=== PATIENT | male | born 1965 | race Caucasian/White ===

== ENCOUNTER 2017-07-21 08:06 | Emergency (ER) | payer BC ==
[2017-07-21 08:25] VITALS: BP 152/95
--- NOTE | 2017-07-21 08:39 | UC ---
Skin Complaint HPI - HPI Summary HPI Summary: 51 yo male with left thumb pain and swelling remote hx of pw with wire in that same location no f/c - History of Current Complaint Chief Complaint: UCSkin Time Seen by Provider: 07/21/17 08:17 Stated Complaint: RED AREA ON THUMB Hx Obtained From: Patient Onset/Duration: Gradual Onset, Lasting Days Timing: Constant Onset Severity: Mild Current Severity: Severe Pain Intensity: 9 Pain Scale Used: 0-10 Numeric Location: Discrete Character: Pain, Redness, Raised, Painful Aggravating Factor(s): Touch Alleviating Factor(s): Nothing Associated Signs & Symptoms: Positive: Tenderness Related History: Trauma - remote hx pw with wire - Allergy/Home Medications Allergies/Adverse Reactions: Allergies Allergy/AdvReac Type Severity Reaction Status Date / Time No Known Allergies Allergy Verified 07/21/17 08:24 Review of Systems Constitutional: Negative Skin: Negative Eyes: Negative ENT: Negative Respiratory: Negative Cardiovascular: Negative Gastrointestinal: Negative Genitourinary: Negative Motor: Negative Neurovascular: Negative Musculoskeletal: Negative Neurological: Negative Psychological: Negative Is Patient Immunocompromised?: No All Other Systems Reviewed And Are Negative: Yes PMH/Surg Hx/FS Hx/Imm Hx Previously Healthy: Yes Cardiovascular History: Hypertension - Surgical History Surgical History: Yes Surgery Procedure, Year, and Place: L wrist surgery,knees, feet, APPY REMOVED 1989 - Family History Known Family History: Positive: Cardiac Disease, Hypertension - Social History Alcohol Use: Daily Alcohol Amount: "sober for 14 months" Substance Use Type: None Smoking Status (MU): Light Every Day Tobacco Smoker Amount Used/How Often: 1pk/q3days Physical Exam Triage Information Reviewed: Yes Appearance: Well-Appearing Vital Signs: Initial Vital Signs Temp 98.8 F 07/21/17 08:17 Pulse 99 07/21/17 08:17 Resp 18 07/21/17 08:17 BP 152/95 07/21/17 08:17 Pulse Ox 98 07/21/17 08:17 Vital Signs Reviewed: Yes Eyes: Positive: Conjunctiva Clear ENT: Negative: Nasal congestion, Nasal drainage Neck: Positive: Supple, Nontender Respiratory: Positive: Lungs clear, Normal breath sounds, No respiratory distress, No accessory muscle use Cardiovascular: Positive: RRR Abdominal Exam: Normal Musculoskeletal: Positive: ROM Intact, Edema @ Neurological Exam: Normal Psychological Exam: Normal Course/Dx - Course Course Of Treatment: TO SEE DR. GAEE FROM HERE - Diagnoses Provider Diagnoses: LEFT THUMB ABSCESS/RETAINED FOREIGN BODY. INCISION AND DRAINAGE OF LEFT THUMB ABSCESS Procedures - Procedure Summary Procedure Summary: I&D LEFT THUNB ABSCESS TIME OUT DIGITAL BLOCL WITH 7CC LIDOCAINEAND MARCAINE INCISED COPIUS PUS EXPRESSED C&S OBTAINED UNABLE TO LOCAL FB STERILE DRESSING - Incision and Drainage Site: left thumb Anesthesia: Digital, Lidocaine - and marcaine Instrument(s): Needle Packing: Other - no packing Discharge - Discharge Plan Condition: Stable Disposition: HOME Prescriptions: Cephalexin CAP* [Keflex CAP*] 500 mg PO QID #28 cap Patient Education Materials: Soft Tissue Foreign Body (ED), Abscess (ED) Referrals: Divina Agee MD [Medical Doctor] - (TO OFFICE NOW) Images Hands: 1 - pointing abscess with surrounding erthyema
[2017-07-21] MEDS ORDERED: Lidocaine 2% PF * 5 ML VIAL INJ ONE (08:49)
[2017-07-21] MEDS ORDERED: Bupivacaine 0.25% SDV* 30 ML INJ ONE (08:51)
[2017-07-21] MEDS ORDERED: Bupivacaine 0.25% MDV* 50 ML VIAL INJ ONE (09:01)
--- NOTE | 2017-07-21 09:05 | RAD ---
INDICATION: Evaluate for foreign body COMPARISON: None TECHNIQUE: AP, lateral, and oblique views were obtained. FINDINGS: There is a small linear foreign body medially adjacent to the tuft. The foreign body measures 3 mm in length and is 4 mm deep to the skin surface at its closest point. There are no focal osseous findings. There is soft tissue swelling about the left IMPRESSION: FOREIGN BODY WITH SOFT TISSUE SWELLING
[2017-07-21] MEDS ORDERED: Bupivacaine 0.25% SDV* 30 ML ONE (09:07)
[2017-07-21] MEDS ORDERED: Cephalexin CAP* 500 MG PO ONE (09:32)
[2017-07-21] MEDS ORDERED: Tetan/Diph/Pertus SYR(Tdap)* 0.5 ML SYR(BOOSTRIX) use SYR IM ONE (09:34)
== END 2017-07-21 09:54 | disposition home or self-care (01) ==
LOC: UCEAST 08:06
DX: L02.512 Cutaneous abscess of left hand (principal); M79.5 Residual foreign body in soft tissue; Z23 Encounter for immunization; I10 Essential (primary) hypertension; F17.210 Nicotine dependence, cigarettes, uncomplicated
CPT/HCPCS: 10060; 87070; 87205; 90471; 90715; 99212; A9270-GY; G0463

== ENCOUNTER 2017-07-22 09:57 | Day surgery (SDC) | payer BC ==
--- NOTE | 2017-07-21 15:01 | HP ---
DATE OF ADMISSION: 07/22/2017 - [facility] DATE OF OFFICE VISIT/ENCOUNTER: 07/21/2017. ATTENDING SURGEON: Dr. Divina Funes * (dictated by MESHA Yusuf). PROCEDURE: Left thumb incision and drainage, removal of foreign body. CHIEF COMPLAINT: Foreign body left thumb. HISTORY OF PRESENT ILLNESS: This is a 51-year-old male who cut his thumb approximately two years ago on a piece of metal. He did not realize at the time that there was a foreign body retained. Three to four days ago he started to have increased pain and swelling in the left thumb. He ended up going to [facility] on 07/21/2016 and had an x-ray that shows a metallic foreign body. An incision and drainage was performed at [facility] and a lot of purulent material was expressed, but they were not able to retrieve the foreign body. 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 He would like to have the foreign body removed. They also took cultures at [facility]. He was also prescribed Keflex which he will take as prescribed. PAST MEDICAL HISTORY: 1. Asthma. 2. Depression/anxiety. PAST SURGICAL HISTORY: 1. ORIF left wrist. 2. Right hand surgery. 3. Left foot surgery. 4. Appendectomy. CURRENT MEDICATIONS: 1. Multivitamin daily. 2. Zoloft 25 mg daily. ALLERGIES: No known drug allergies. FAMILY MEDICAL HISTORY: Alzheimer's. 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 He is a smoker and smokes a pack per day and has done so for the past 30 to 35 years. He denies illicit drug use. He does drink alcohol on a regular occasion. REVIEW OF SYSTEMS: General: Negative for fevers, chills, or night sweats. No known anesthesia problems. HEENT: Negative for headache, lightheadedness, or syncopal episodes. Integumentary: Negative for abrasions, lesions, or open wounds. Cardiothoracic: Negative for hypertension, chest pain, palpitations, or edema. Pulmonary: Negative for shortness of breath with exertion, chronic cough, COPD. GI: Negative for nausea, vomiting, diarrhea, constipation, or GERD. : Negative for nocturia, urinary frequency, urgency, history of UTI's, or kidney problems. Musculoskeletal: Positive for current complaint. Neurologic: Positive for depression/anxiety. Negative for history of seizure, stroke, or epilepsy. No paresthesia or numbness. Endocrine: Negative for diabetes and thyroid issues. Hematologic: Negative for easy bruising, anemia, excessive bleeding, or history of DVT. Infectious Disease: Negative for history of MRSA, hepatitis C, or HIV. PHYSICAL EXAMINATION GENERAL: Well-developed, well-nourished, 51-year-old male in no acute distress. VITAL SIGNS: Height 5'7", weight 190 pounds, pulse rate 63, blood pressure 122/ 88. HEENT: Normocephalic, atraumatic. Pupils are equal, round and reactive to light and accommodation. Extraocular movements are intact. Neck is supple. No palpable lymph nodes. Throat is clear. CARDIOVASCULAR: Regular rate and rhythm. S1, S2. No murmurs, rubs or gallops. No edema. PULMONARY: Lungs are clear to auscultation bilaterally. No wheezes, rales or rhonchi. ABDOMEN: Positive bowel sounds, soft, nontender. MUSCULOSKELETAL: On exam of the left thumb, there is a small incision. There is some surrounding erythema and swelling. He has active flexion and extension of the thumb and neurovascular function is intact. NEUROLOGIC: Alert and oriented times three. Cranial nerves II through XII are intact. Sensation is intact to light touch. PERIPHERAL VASCULAR: 2+ radial and ulnar pulses. Negative Carson's test. IMAGING STUDIES: X-rays before and after the incision and drainage show a metallic foreign body in the thumb. IMPRESSION: Left thumb foreign body with surrounding abscess. PLAN: The patient is scheduled to undergo a left thumb incision and drainage, removal of foreign body with Dr. Funes on 07/22/2017. He will return to the office 10 to 14 days postop for follow-up. A prescription for Ultracet was e- scribed to the patient's pharmacy for postoperative pain management. MESHA YUSUF [id number]/[facility] #: [id number] MELBA
[~2017-07-22 09:57] MED LIST: Buffered Lidocaine 0.9% SYRIN* 5 ML/SYR SYRINGE INTRADERM ONE; Lidocaine 1% INJ* 10 MG/ML 30 ML SDV ONE; Sodium Citrate/Citric Acid* 15 ML UDC PO ONE
[2017-07-22] MEDS ORDERED: Lidocaine 1% INJ* 10 MG/ML 30 ML SDV ONE (11:33)
[2017-07-22 12:18] VITALS: BP 136/83
[2017-07-22] MEDS ORDERED: Tropicamide 1% OPTH.SOL* BTL ONE (12:45)
[2017-07-22] MEDS ORDERED: Lidocaine 1% MPF* 2 ML VIAL ONE (12:45)
[2017-07-22] MEDS ORDERED: Neomycin/Polymy/Dex OPHTH.OIN* 3.5 GM ONE (12:45)
[2017-07-22] MEDS ORDERED: Phenylephrine 2.5% OPTH.SOL* 2 ML BTL ONE (12:45)
[2017-07-22] MEDS ORDERED: Ketorolac 0.5% OPHTH (NF) 0.5 % 5 ML BTL ONE (12:45)
[2017-07-22] MEDS ORDERED: Cyclopentolate 1% OPTH.SOL* 2 ML BTL ONE (12:45)
[2017-07-22] MEDS ORDERED: Tetracaine 0.5% OPTH.SOL 4 ML* 1 DROP BTL ONE (12:45)
--- NOTE | 2017-07-23 03:12 | OP ---
DATE OF OPERATION: 07/22/17 - [facility] DATE OF : 67 SURGEON: Divina Funes MD MASK LAYOUT DESIGNER: MESHA Yusuf ANESTHESIA: Local. PRE-OP DIAGNOSES: Foreign body and abscess of the left thumb. POST-OP DIAGNOSES: Foreign body and inclusion cyst of the left thumb. OPERATIVE PROCEDURE: Foreign body removal and removal of mass, left thumb. INDICATIONS: Awais is a 51-year-old man who has a swelling and erythema of his left thumb. He was seen at the [facility] yesterday and had an x-ray which showed a metallic foreign body. He had I and D of the thumb and cultures were obtained, but these are not available yet. He presents now for foreign body removal and I and D of left thumb. ESTIMATED BLOOD LOSS: Zero. TOURNIQUET TIME: About 10 minutes. DESCRIPTION OF PROCEDURE: The patient was brought to the operating room and was given a digital block anesthetic with 10 cc of 1% plain lidocaine. The skin of the left hand and forearm was prepped and draped in the usual sterile fashion. The thumb was exsanguinated with a Tourni-Cot, which was left in place for the duration of the procedure. An incision was made over the visible mass and we found actually an inclusion cyst and this was removed in its entirety. There was also metallic foreign body that was removed. The wound was then copiously irrigated with saline and the skin edges reapproximated with 4-0 nylon suture. The wound was dressed with Xeroform, 4x4s, Webril, and Coban. The patient tolerated the procedure well and was brought to the recovery room in good condition. [id number]/[facility] #: [id number] [facility]
== END 2017-07-22 12:20 | disposition home or self-care (01) ==
LOC: OREAST 09:57
PROVIDERS: ATTEND Orthopaedic Surgery
DX: M79.5 Residual foreign body in soft tissue (principal); L02.818 Cutaneous abscess of other sites; J45.909 Unspecified asthma, uncomplicated; F41.8 Other specified anxiety disorders; F17.210 Nicotine dependence, cigarettes, uncomplicated
CPT/HCPCS: 88304; A9270-GY

== ENCOUNTER 2018-07-10 10:20 | Emergency (ER) | payer BC ==
[2018-07-10 10:41] VITALS: BP 126/83
--- NOTE | 2018-07-10 13:30 | UC ---
FLU HPI - HPI Summary HPI Summary: 52 y/o male presents to the urgent care c/o nasal congestion w/ yellowish nasal discharge, FOLEY,sinus pain for the past 2 weeks. Pt with Hx or recurrent sinusitis. Symptoms started w/ flu like symptoms and have worse despite taking OTC medication. For the past 2 days he developed RT upper jaw pain and swelling w/ an infected molar. Pain is 7/10. He has taken tylenol/ibuprofen w/o any relief of pain. He doesn't have a Dentist. Pt denies fever, dizziness, SOB, chest pain, trismus, ear pain, N/V/D. - History of Current Complaint Chief Complaint: UCGeneralIllness Stated Complaint: HEADACHE Time Seen by Provider: 07/10/18 13:24 Hx Obtained From: Patient Onset/Duration: Gradual Onset, Lasting Weeks - 2 weeks, Still Present, Worse Since - 2 days with Rt upper jaw dental pain Severity Currently: Mild Severity Initially: Moderate Pain Intensity: 7 Pain Scale Used: 0-10 Numeric Associated Signs & Symptoms: Positive: Nasal Congestion - yellowish, Headache - Risk Factors Influenza Risk Factors: Negative - Allergy/Home Medications Allergies/Adverse Reactions: Allergies Allergy/AdvReac Type Severity Reaction Status Date / Time No Known Allergies Allergy Verified 07/10/18 10:41 PMH/Surg Hx/FS Hx/Imm Hx Previously Healthy: Yes GI/ History: Gastroesophageal Reflux - Surgical History Surgical History: Yes Surgery Procedure, Year, and Place: L wrist surgery,knees, feet, APPY REMOVED 1989 - Family History Known Family History: Positive: Cardiac Disease, Hypertension - Social History Occupation: Employed Full-time Lives: With Family Alcohol Use: Rare Alcohol Amount: "sober for 14 months" Substance Use Type: None Smoking Status (MU): Heavy Every Day Tobacco Smoker Amount Used/How Often: 1pk/q3days Review of Systems All Other Systems Reviewed And Are Negative: Yes Constitutional: Positive: Negative Skin: Positive: Negative Eyes: Positive: Negative ENT: Positive: Dental Pain - RT upper jaw pain w/ caries, Nasal Discharge - yellowish, Sinus Congestion, Sinus Pain/Tenderness - RT>LF, Other - PND Cardiovascular: Positive: Negative Gastrointestinal: Positive: Negative Genitourinary: Positive: Negative Motor: Positive: Negative Neurovascular: Positive: Negative Musculoskeletal: Positive: Negative Neurological: Positive: Headache Psychological: Positive: Negative Is Patient Immunocompromised?: No Physical Exam - Summary Physical Exam Summary: Vital Signs Reviewed: Yes General: Well-Appearing, Well-Nourished male sitting in the examining table w/ o any respiratory or pain distress Eyes: Positive: Conjunctiva Clear - PERRLA, EOMI, ENT: Positive: Normal ENT inspection, Hearing grossly normal, Pharynx normal, TMs normal - B/L external ear canals clear,. Negative: Tonsillar swelling, Tonsillar exudate, no Trismus. edematous nasal mucosa with yeelosih drainage and tendernes over the maxillary and frontal sinuses on percussion. Yellowish PND Dental: Positive: Gross Decay/Caries w/ fracture molars #3 and 4 , Abscess @ - gingival swelling and erythema, tender to percussion. involves tissue surrounding the teeth #3 and 4, Cervical Lymphadenopathy - anterior-Periodontal : involves tissue surrounding the teeth. Periapical: Neck: Positive: Supple Respiratory: Positive: Chest non-tender, Lungs clear, Normal breath sounds, No respiratory distress Cardiovascular: Positive: RRR, No Murmur, Pulses Normal, Brisk Capillary Refill Abdomen Description: Positive: Nontender, No Organomegaly, Soft. Negative: CVA Tenderness (R), CVA Tenderness (L) Bowel Sounds: Positive: Present Musculoskeletal: Positive: Strength Intact, ROM Intact, No Edema Neurological Exam: Normal Psychological Exam: Normal Skin Exam: Normal Triage Information Reviewed: Yes Vital Signs: Initial Vital Signs Temp 98 F 07/10/18 10:36 Pulse 69 07/10/18 10:36 Resp 17 07/10/18 10:36 BP 126/83 07/10/18 10:36 Pulse Ox 100 07/10/18 10:36 Flu Course/Dx - Course Course Of Treatment: 52 y/o male presents to the urgent care c/o nasal congestion w/ yellowish nasal discharge, FOLEY,sinus pain for the past 2 weeks. Pt with Hx or recurrent sinusitis. Symptoms started w/ flu like symptoms and have worse despite taking OTC medication. For the past 2 days he developed RT upper jaw pain and swelling w/ an infected molar. Pain is 7/10. He has taken tylenol/ ibuprofen w/o any relief of pain. He doesn't have a Dentist. Pt denies fever, dizziness, SOB, chest pain, trismus, ear pain, N/V/D. Hx obtained. Pt with a possible dental abscess around molar # and acute bacterial sinusitis on examination. Pt Rx Amoxicillin PO and Naproxen PO for pain and flonase. Pt strongly advised to f/u with Dentist as soon as possible further evaluation and treatment. Pt understood and agreed with plan of care. Left the clinic ambulating. - Differential Dx/Diagnosis Differential Diagnosis/HQI/PQRI: Bronchitis, Influenza, Upper Respiratory Infection, Other - dental abscess, sinusitis Provider Diagnosis: Dental abscess, Acute bacterial sinusitis Discharge - Sign-Out/Discharge Documenting (check all that apply): Patient Departure - d/C home All imaging exams completed and their final reports reviewed: No Studies - Discharge Plan Condition: Stable Disposition: HOME Prescriptions: Amoxicillin PO (*) [Amoxicillin 875 MG (*)] 875 mg PO BID #20 tab Fluticasone NASAL SPRAY 50MCG* [Flonase NASAL SPRAY 50MCG*] 2 spray BOTH NARES DAILY #1 btl Lidocaine 2% VISCOUS* [Xylocaine 2% Viscous*] 15 ml SWISH SPIT Q6H PRN #1 btl PRN Reason: dental pain Naproxen TAB* [Naprosyn 250 mg TAB*] 250 mg PO Q8H PRN #30 tab PRN Reason: Pain Patient Education Materials: Dental Abscess (ED), Sinusitis (ED) Referrals: [facility] [place] [facility]IAN REFERRAL [Outside] - 2 Days Additional Instructions: 1-Please take full course of antibiotic to avoid resistance. Take yogurt with probiotic or culturelle to protect your GI system 2- Take Naproxen as instructed after meals to alleviate pain and swelling. Also Take the Lidocaine to alleviate dental pain. Increase fluid intake and take your Ranitidine to protect you stomach 3- Use the Flonase nasal spray and saline drops as directed to clear sinuses. 4- F/u with your Dentist or Dental List provided as soon as possible for further treatment. 5- If symptoms do not improve or worsen please return to the urgent care or f/u with your PCP in 2-3 days for further evaluation and treatment - Billing Disposition and Condition Condition: STABLE Disposition: Home
== END 2018-07-10 14:05 | disposition home or self-care (01) ==
LOC: UCEAST 10:20
DX: J01.90 Acute sinusitis, unspecified (principal); K04.7 Periapical abscess without sinus; F17.200 Nicotine dependence, unspecified, uncomplicated
CPT/HCPCS: 99212; G0463